=== PATIENT | female | born 1950 | race Caucasian/White ===

== ENCOUNTER 2024-10-21 10:47 | Outpatient (CLI) | payer MEDICARE | END 2024-10-21 10:48 | disposition home or self-care (01) | LOC: CSHWCC 10:47 | PROVIDERS: ATTEND Nurse Practitioner Family | DX: S70.361D Insect bite (nonvenomous), right thigh, subsequent encounter (principal); L97.111 Non-pressure chronic ulcer of right thigh limited to breakdown of skin | CPT/HCPCS: 11042; 97605 ==

== ENCOUNTER 2024-10-28 12:22 | Outpatient (CLI) | payer MEDICARE | END 2024-10-28 12:23 | disposition home or self-care (01) | LOC: CSHWCC 12:22 | PROVIDERS: ATTEND Nurse Practitioner Family | DX: S70.361D Insect bite (nonvenomous), right thigh, subsequent encounter (principal); L97.111 Non-pressure chronic ulcer of right thigh limited to breakdown of skin | CPT/HCPCS: 11042; 97605 ==

== ENCOUNTER 2024-11-04 15:57 | Outpatient (CLI) | payer MEDICARE | END 2024-11-04 15:58 | disposition home or self-care (01) | LOC: CSHWCC 15:57 | PROVIDERS: ATTEND Nurse Practitioner Family | DX: S70.361D Insect bite (nonvenomous), right thigh, subsequent encounter (principal); L97.111 Non-pressure chronic ulcer of right thigh limited to breakdown of skin | CPT/HCPCS: 11042; 97607 ==

== ENCOUNTER 2024-11-10 08:41 | Outpatient (CLI) | payer MEDICARE | END 2024-11-10 08:42 | disposition home or self-care (01) | LOC: CSHWCC 08:41 | PROVIDERS: ATTEND Nurse Practitioner Family | DX: S70.361D Insect bite (nonvenomous), right thigh, subsequent encounter (principal); L97.111 Non-pressure chronic ulcer of right thigh limited to breakdown of skin | CPT/HCPCS: 11042; 97605 ==

== ENCOUNTER 2024-11-17 10:31 | Outpatient (CLI) | payer MEDICARE | END 2024-11-17 10:32 | disposition home or self-care (01) | LOC: CSHWCC 10:31 | PROVIDERS: ATTEND Nurse Practitioner Family | DX: S70.361D Insect bite (nonvenomous), right thigh, subsequent encounter (principal); L97.111 Non-pressure chronic ulcer of right thigh limited to breakdown of skin | CPT/HCPCS: 99212; G0463 ==

== ENCOUNTER 2024-12-02 09:44 | Outpatient (CLI) | payer MEDICARE | END 2024-12-02 09:45 | disposition home or self-care (01) | LOC: CSHWCC 09:44 | PROVIDERS: ATTEND Nurse Practitioner Family | DX: Z09 Encounter for follow-up examination after completed treatment for conditions other than malignant neoplasm (principal); Z87.2 Personal history of diseases of the skin and subcutaneous tissue | CPT/HCPCS: 99212; G0463 ==